=== PATIENT | female | born 1995 | race Caucasian/White ===

== ENCOUNTER 2024-04-20 20:37 | Emergency (ER) | payer SELFPAY ==
--- NOTE | ~2024-04-20 | CT_ITS ---
EXAMINATION: CT lumbar spine wo con DATE: 04/20/2024 22:02 INDICATION: Left-sided sciatica TECHNIQUE: Computed tomography (CT) of the lumbar spine was performed without intravenous contrast. A utomated exposure control and iterative reconstruction technique were employed. The dose-length produ ct was 733.51 mGy-cm. COMPARISON: None FINDINGS: 9 degrees thoracolumbar levocurvature. Vertebral body heights are normal. Sclerotic likely bone islan d with spiculated margins in the L1 vertebral body. Mild disc height loss at L4-L5 and mild right-jacqueline ed disc height loss at L1-L2 and L2-L3. Small Schmorl's node along the superior endplate of L5. Pessa ry within the vaginal vault. Paravertebral soft tissues are unremarkable. The following disc levels a re specifically discussed: T11-T12: The disc does not extend beyond the endplate margin. There is mild bilateral facet joint ost eoarthritis. There is no neural foraminal stenosis. There is no central canal stenosis. T12-L1: The disc does not extend beyond the endplate margin. There is mild right and minimal left fac et joint osteoarthritis. There is no neural foraminal stenosis. There is no central canal stenosis. L1-L2: Disc is mildly bulging. There is mild right and minimal left facet joint osteoarthritis. There is no neural foraminal stenosis. There is no central canal stenosis. L2-L3: Disc is mildly bulging. There is minimal bilateral facet joint osteoarthritis. There is no surya ral foraminal stenosis. There is no central canal stenosis. L3-L4: Disc is bulging. There is minimal bilateral facet joint osteoarthritis. There is no neural for aminal stenosis. There is mild central canal stenosis. L4-L5: Disc is bulging. There is mild left and minimal right facet joint osteoarthritis. There is min imal bilateral neural foraminal stenosis. There is mild central canal stenosis. L5-S1: Disc is bulging. There is mild bilateral facet joint osteoarthritis. There is mild left and mi nimal right neural foraminal stenosis. There is mild central canal stenosis. IMPRESSION: 1. Mild lumbar levocurvature with mild spondylosis. No acute osseous abnormality. Reviewed, dictated and finalized at location A. STOCK RANCHER IMPRESSION: 1. Mild lumbar levocurvature with mild spondylosis. No acute osseous abnormalit y.
[2024-04-20 20:38] VITALS: BP 126/77; PULSE 86; RESP 16; TEMP 36.8; O2SAT 100
[2024-04-20 21:31] LABS: BEDSIDEPREGUCG Negative (Negative)
--- NOTE | 2024-04-20 21:31 | ED.BACK ---
HPI - Back Pain/Injury General Chief Complaint: Back Pain/Injury Stated Complaint: back pain Time Seen by Provider: 04/20/24 21:13 Source: patient Mode of arrival: ambulatory Limitations: no limitations History of Present Illness HPI Narrative: Patient presents with low back pain particularly her right side and extending into the buttock and back of the thigh, terminating at the knee. She states that she had 3 spinal taps with the of her children and has had intermittent back pain issues since with a history of sciatica. 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 She states she has no pain while sitting right now. Previously episodes have lasted 2 weeks but she is hoping to get resolution released improvement sooner than this given that she really needs to keep her job right now. She will occasionally experience pain in her left leg. Pain is rated 10/10 in severity. She has been taking 8 hour extended-release Tylenol 650 mg x 6 total in the past day as well as ibuprofen 200 mg times a total of 8 today. No trauma. No paresthesias or saddle anesthesia currently although she states that earlier she had paresthesias in left toes, digits 3, 4, and 5 but these resolved.. No incontinence of bowel or bladder. Denies IV drug use, cancer, fever, abdominal pain chronic steroid use, HIV, immunosuppression, or tearing sensation. She has been having some dysuria and urinary frequency. No syncope but she states she nearly passed out due to the pain while at work earlier. 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 HEAD: Normocephalic, atraumatic. EYES: Non injected, non icteric ENT: Nares clear, no rhinorrhea or epistaxis. NECK: Supple. CHEST: Speaking in full sentences. No respiratory distress. HEART: Regular rate and rhythm. . ABDOMEN: Soft, nondistended. EXTREMITIES: Normal range of motion. No lower extremity edema. Patient experiences some pain with extension of the lumbar spine and with left hip flexion but she is able to do so without limitations in range of motion. BACK: Straight leg positive on the left, normal on right. Demonstrates flexion and extension as well as rotational a spse-nh-ydly motion at the lumbar spine. No midline TTP. No appreciable spasm. SKIN: Warm, dry, no rash. NEURO: No focal deficits. Alert and oriented x3. 5/5 strength with bilateral ankle dorsiflexion and plantar flexion, knee flexion extension, hip flexion/abduction/adduction. Sensation intact to touch in bilateral lower extremities in the thighs and calves. PSYCH: Normal mood and affect. Course Vital Signs Vital signs: Vital Signs Temperature 98.3 F 04/20/24 20:38 Pulse Rate 86 04/20/24 20:38 Respiratory Rate 16 04/20/24 20:38 Blood Pressure 126/77 04/20/24 20:38 Pulse Oximetry 100 04/20/24 20:38 Oxygen Delivery Room Air 04/20/24 20:38 Temperature 98.3 F 04/20/24 20:38 Pulse Rate 86 04/20/24 20:38 Respiratory Rate 16 04/20/24 20:38 Blood Pressure 126/77 04/20/24 20:38 Pulse Oximetry 100 04/20/24 20:38 Oxygen Delivery Room Air 04/20/24 20:38 MDM - Back Pain/Injury MDM Narrative Medical decision making narrative: Patient presents with right lower back pain radiating into buttock/back of thigh on the right and terminating at knee. In the emergency department they are afebrile with vital signs within normal limits. Back has no deformities, or signs of trauma. No tenderness is noted on palpation of the spinous processes which are midline. Lumbar paraspinal muscles are not tender and are without spasm. Patient demonstrates flexion, extension, and bweh-tk-rnzy rotation of the lumbar spine. Sensation to the lower extremities is normal bilaterally. Dorsi/plantar flexion is normal bilaterally. They do not have any other red flags for fracture, malignancy, infection (e.g. spinal epidural abscess), or aortic/vascular: Age, no trauma, not on chronic steroids, no symptoms of cancer, no fever, IV drug use, HIV, immunosuppression, abdominal pain, tearing pain, syncope. Some urinary symptoms; will obtain urinalysis. This is negative. Patient given [place]. However, given straight leg test positive on the left, will proceed with imaging. Urinalysis unremarkable. PVR essentially nothing per RN. Imaging negative for acute process as below. Patient given ketorolac and lidocaine patch. We had discussed multimodal pain strategy and the importance of balancing rest with performing simple exercises and back strengthening. Medications are prescribed. Advised follow up; does not reside here but provided referral if she does end up staying in the area. Provided strict ED return precautions. Lab Data Attestation: I reviewed the patient's lab results. Labs: Lab Results 04/20/24 04/20/24 Range/Units 21:27 21:29 Urine Color Yellow (Yellow) Urine Appearance Clear (Clear) Urine pH 6.0 (5.0-9.0) Ur Specific [place] 1.022 (1.001-1.035) Urine Protein Negative (Negative) mg/dL Urine Glucose (UA) Negative (Negative) mg/dL Urine Ketones Negative (Negative) mg/dL Ur Blood (Man) Negative (Negative) Urine Nitrate Negative (Negative) Urine Bilirubin Negative (Negative) Urine Urobilinogen 0.2 (<2.0) mg/dL Leukocyte Esterase Rfl Negative (Negative) ROSANNE/UL POC Urine HCG, Qual Negative (Negative) Imaging Data Radiologist's impression: CT L spine Stat Rad: No evidence of acute lumbar spine pathology. If there is continued clinical concern for radiculopathy, and MRI may be of benefit for further evaluation. Incidental findings: Mild levoscoliosis. No comparisons. Discharge Plan Discharge Clinical Impression: Sciatica, Levoscoliosis of lumbar spine Patient Disposition: Home, Self-Care Condition: Stable Instructions: Antibiotic Form, Sciatica (ED), Acute Low Back Pain (ED), Lower Back Exercises (ED) Additional Instructions: As we discussed, the goal is multimodal pain management to allow you to balance some rest with making the pain more tolerable so that you can perform low back stretches and exercises to strengthen your core. Acetaminophen/Tylenol (maximum 4000 mg per day) is safe to take with NSAIDs (ibuprofen/Motrin) for pain relief. There also topical approaches as well as muscle relaxer. Follow-up with your primary care physician. If you do stay in the area and need 1, the name of a doctor is provided below. Return to the ER if you have increased pain in your back, you develop lower extremity weakness/numbness/paralysis, you have numbness or tingling in your private parts, or you are unable to control your ability to urinate/stool. Patient Language: Wolof Prescriptions: New lidocaine 4 % adhesive patch,medicated 1 patch topical DAILY PRN (Reason: pain) Qty: 5 0RF ibuprofen 600 mg tablet 600 mg PO TID PRN (Reason: pain) Qty: 30 0RF acetaminophen 500 mg capsule 1,000 mg PO Q6H PRN (Reason: pain) Qty: 30 0RF methocarbamol 750 mg tablet 1,500 mg PO HS Qty: 14 0RF Follow-up/Referrals: Brittney Lopez DO [Physician] - (family practice) PHYSICIAN NOT ON STAFF,NONSTAFF [Primary Care Provider] - Stand Alone Forms: Work/School Release IP Time of Disposition: 00:27
[2024-04-20 21:34] LABS: Add Urine Microscopic? NO; Appearance Urine Clear (Clear); Bilirubin Urine Negative (Negative); Blood Urine Negative (Negative); Color Urine Yellow (Yellow); Glucose Urine UA Negative (Negative); Ketones Urine Negative (Negative); Leukocyte Esterase Ur Negative LEU/UL (Negative); Nitrate Urine Negative (Negative); Protein Urine Negative (Negative); Specific Grav Ur 1.022 (1.001-1.035); Urobilinogen Urine 0.2 mg/dL (<2.0)
[2024-04-20] MEDS: HYDROcodone/acetaminophen (*CRX) 5-325 MG TABLET 1 TAB PO (21:47)
--- OUTSIDE RECORDS SUMMARY | 2024-04-20 22:14 | XMS_ITS | Encounter Summary ---
Author Organization [facility] Address [address] [place], [address] [place] [address] Care Team Providers Care Tool Design Checker Name Role Phone Unavailable Primary Care Provider Unavailabl e Encounter Details Date Type Department Care Team (Late st Contact Info) Description 10/03/2022 Lab Requisition [facility] [address] [facility] [place] [id number] Ordering, Generic Physician Encounter for general adult medical examination without abnormal findings Social History Tobacco Use Types Packs/Day Years Used Date Smoking Tobacco: Never Assessed Comments Unknown Sex and Gender Information Value Date Recorded Sex Assigned at Not on file 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 Urine URINE SPECIMEN / Unknown 10/02/2022 6:50 PM CDT 10/03/2022 1:[address] [facility] - 10/04/2022 12:13 PM CDT Urogenital marilee present. No further workup. Generic Physician Ordering MICROBIOLOGY - GENERA L ORDERABLES Final Result [facility] [address] [place] [address], [facility] [phone] documented in this encounter Visit Diagnoses Diagnosis Encounter for general adult medical examination without abnormal findings documented in this encounter
--- OUTSIDE RECORDS SUMMARY | 2024-04-20 22:14 | XMS_ITS | Encounter Summary ---
Author Organization [facility] Address [address] [facility] [place], [address] [place] [address] Care Team Providers Care Aircraft Loadmaster Superintendent Name Role Phone Unavailable Primary Care Provider Unavailabl e Encounter Details Date Type Department Care Team (Late st Contact Info) Description 12/01/2021 Lab Requisition [facility] [address] [facility] [place], [id number] Ordering, Generic Physician Encounter for general adult medical examination without abnormal findings Social History Tobacco Use Types Packs/Day Years Used Date Smoking Tobacco: Never Assessed Comments Unknown Sex and Gender Information Value Date Recorded Sex Assigned at Not on file 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 Gender Identity Not on file Sexual Orientation Not on file documented as of this encounter Plan of Treatment Not on file documented as of this encounter Procedures Procedure Name Priority Date/Time Associated Diagnosis Comments CULTURE MISCELLANEOUS WITH STAIN (PREVIOUSLY WOUND CULTURE) Today 11/30/2021 4:46 PM CDT Encounter for general adult medical examination without abnormal findings documented in this encounter Results * (ABNORMAL) Wound culture (11/30/2021 4:46 PM CDT) Miscellaneous Culture STAPHYLOCOCCUS AUREUS(A) SUSCEPTI BILITY (COLIN) PANEL 12/03/2021 10:03 AM T [facility] Comment:Methicillin resistan t Staph aureus (MRSA) Miscellaneous Culture STAPHYLOCOCCUS, COAGULASE NEGATIVE(A) SUSCEPTI BILITY (COLIN) PANEL 12/03/2021 10:03 AM T [facility] Comment:No further testing p erformed. Notify Lab if further testing required. Gram Stain Few Gram positive cocci 12/03/2021 10:03 AM CDT [facility] Wound SWAB FROM LOWER LEG / Unknown 11/30/2021 4:46 PM CDT 12/01/2021 1:12 PM CDT Narrative [facility] - 12/03/2021 10:03 AM CDT LEFT LOWER LEG Organism Antibiotic Method Susceptibility Staphylococcus aureus Clindamycin SUSCEPTIBI LITY (COLIN) PANEL >=4.00: Resistant Staphylococcus aureus Doxycycline SUSCEPTIBI LITY (COLIN) PANEL <=0.50: Sensitive Staphylococcus aureus Oxacillin SUSCEPTIBI LITY (COLIN) PANEL >=4.00: Resistant Staphylococcus aureus Rifampin SUSCEPTIBI LITY (COLIN) PANEL <=0.50: Sensitive Staphylococcus aureus Trimethoprim+Sulfa m ethoxazole SUSCEPTIBILITY (COLIN) PANEL <=10.000: Sensitive Staphylococcus aureus Vancomycin SUSCEPTIBI LITY (COLIN) PANEL 1.000: Sensitive us Generic Physician Ordering MICROBIOLOGY - GENERA L ORDERABLES Final Result Performing Organization Address City/State/[facility] Co de Phone Number [facility] [address] [place] [address], [facility] [phone] documented in this encounter Visit Diagnoses Diagnosis Encounter for general adult medical examination without abnormal findings documented in this encounter
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
--- OUTSIDE RECORDS SUMMARY | 2024-04-20 22:14 | XMS_ITS | Encounter Summary ---
Author Organization [facility] Address [address] [facility] [place], [address] [place] [address] Care Team Providers Care Communication Clerk Name Role Phone Unavailable Primary Care Provider Unavailabl e Encounter Details Date Type Department Care Team (Late st Contact Info) Description 12/20/2021 Lab Requisition [facility] [address] [facility] [place], [phone] Ordering, Generic Physician Encounter for general adult medical examination without abnormal findings Social History Tobacco Use Types Packs/Day Years Used Date Smoking Tobacco: Never Assessed Comments Unknown Sex and Gender Information Value Date Recorded Sex Assigned at Not on file Legal Sex Female 8:34 PM 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 Gender Identity Not on file Sexual Orientation Not on file documented as of this encounter Plan of Treatment Not on file documented as of this encounter Procedures Procedure Name Priority Date/Time Associated Diagnosis Comments CULTURE URINE Today 12/19/2021 5:50 PM CDT Encounter for general adult medical examination without abnormal findings documented in this encounter Results * (ABNORMAL) Urine culture (clean catch) (12/19/2021 5:50 PM CDT) Urine Culture >=100,000 CFU/ml 12/22/2021 8:11 AM CDT [facility] Urine Culture ESCHERICHIA COLI(A) SUSCEPTIB ILITY (COLIN) PANEL 12/22/2021 8:11 AM T [facility] Urine URINE SPECIMEN OBTAINED BY CLEAN CATCH PROCEDURE / Unknown 12/19/2021 5:50 PM CDT 12/20/2021 12:57 PM CDT Narrative [facility] - 12/22/2021 8:11 AM CDT Urogenital marilee present. No further workup. Organism Antibiotic Method Susceptibility Escherichia coli Amoxicillin/Clavulanate SUSCEPT IBILITY (COLIN) PANEL 16.00: Intermediate Escherichia coli Ampicillin SUSCEPTIBILITY (COLIN) PANEL >=32.000: Resistant Escherichia coli Cefazolin SUSCEPTIBILITY (COLIN) PANEL 16.00: Sensitive Escherichia coli Cefepime SUSCEPTIBILITY (COLIN) PANEL <=1.000: Sensitive Escherichia coli Ceftazidime SUSCEPTIBILITY (COLIN) PANEL <=1.00: Sensitive Escherichia coli Ceftriaxone SUSCEPTIBILITY (COLIN) PANEL <=1.000: Sensitive Escherichia coli Gentamicin SUSCEPTIBILITY (COLIN) PANEL <=1.00: Sensitive Escherichia coli Levofloxacin SUSCEPTIBILITY (COLIN) PANEL <=0.120: Sensitive Escherichia coli Nitrofurantoin SUSCEPTIBILITY (COLIN) PANEL <=16.00: Sensitive Escherichia coli Piperacillin/Tazobactam SUSCEPT IBILITY (COLIN) PANEL <=4.000: Sensitive Escherichia coli Tobramycin SUSCEPTIBILITY (COLIN) PANEL <=1.00: Sensitive Escherichia coli Trimethoprim+Sulfame tho xazole SUSCEPTIBILITY (COLIN) PANEL >=320.000: Resistant Generic Physician Ordering MICROBIOLOGY - GENERA L ORDERABLES Final Result [facility] [address] [place] [address], [facility] [phone] documented in this encounter Visit Diagnoses Diagnosis Encounter for general adult medical examination without abnormal findings documented in this encounter
--- OUTSIDE RECORDS SUMMARY | 2024-04-20 22:14 | XMS_ITS | Encounter Summary ---
Author Organization [facility] Address [address] [facility] [place], [address] [place] [address] Care Team Providers Care Registered Radiologic Technologist Name Role Phone Unavailable Primary Care Provider Unavailabl e Encounter Details Date Type Department Care Team (Late st Contact Info) Description 07/23/2019 Lab Requisition [facility] [address] [facility] [place], [phone] Ordering, Generic Physician Encounter for general adult medical examination without abnormal findings Social History Tobacco Use Types Packs/Day Years Used Date Smoking Tobacco: Never Assessed Comments Unknown Sex and Gender Information Value Date Recorded Sex Assigned at Not on file Legal Sex Female 8:34 PM PARTS IDENTIFICATION TECHNICIAN Gender Identity Not on file Sexual Orientation Not on file documented as of this encounter Plan of Treatment Not on file documented as of this encounter Procedures Procedure Name Priority Date/Time Associated Diagnosis Comments CULTURE MISCELLANEOUS WITH STAIN (PREVIOUSLY WOUND CULTURE) Today 07/22/2019 8:42 PM CDT Encounter for general adult medical examination without abnormal findings documented in this encounter Results * (ABNORMAL) Wound culture (07/22/2019 8:42 PM CDT) Miscellaneous Culture STAPHYLOCOCCUS AUREUS(A) SUSCEPTI BILITY (COLIN) PANEL 07/25/2019 10:27 AM CDT [facility] Comment:Methicillin resistan t Staph aureus (MRSA) Gram Stain Few Red blood cells 07/25/2019 10:27 AM T [facility] Gram Stain Few Gram positive cocci suggestive of Staphylococcus 07/25/2019 10:27 AM T [facility] Wound SPECIMEN FROM ABSCESS / Unknown 07/22/2019 8:42 PM CDT 07/23/2019 1:29 PM CDT Narrative [facility] - 07/25/2019 10:27 AM CDT RT. Index Finger Organism Antibiotic Method Susceptibility Staphylococcus aureus Clindamycin SUSCEPTIBI LITY (COLIN) PANEL >=4.00: Resistant Staphylococcus aureus Doxycycline SUSCEPTIBI LITY (COLIN) PANEL <=0.50: Sensitive Staphylococcus aureus Gentamicin SUSCEPTIBI LITY (COLIN) PANEL <=0.50: Sensitive Staphylococcus aureus Oxacillin SUSCEPTIBI LITY (COLIN) PANEL >=4.00: Resistant Staphylococcus aureus Rifampin SUSCEPTIBI LITY (COLIN) PANEL <=0.50: Sensitive Staphylococcus aureus Trimethoprim+Sulfa m ethoxazole SUSCEPTIBILITY (COLIN) PANEL <=10.000: Sensitive Staphylococcus aureus Vancomycin SUSCEPTIBI LITY (COLIN) PANEL 1.000: Sensitive us Generic Physician Ordering MICROBIOLOGY - GENERA L ORDERABLES Final Result Performing Organization Address City/State/[facility] Co de Phone Number [facility] [address] [id number], [facility] [phone] documented in this encounter Visit Diagnoses Diagnosis Encounter for general adult medical examination without abnormal findings documented in this encounter
--- OUTSIDE RECORDS SUMMARY | 2024-04-20 22:14 | XMS_ITS | Clinical Summary ---
Author Organization [facility] Address [address] [place], [address] [place] [address] Care Team Providers Care Environmental Specialist Name Role Phone Unavailable Primary Care Provider Unavailabl e Allergies No known active allergies Medications * This document contains information received from the source organization and may not represent a complete record from that organization. lithium 300 mg tablet Take one-half tablet (150 mg total) by mouth every 12 (twelve) hours 30 tablet 10/14/2022 Active Active Problems Problem Noted Date Diagnosed Date Paranoia (HCC ) 10/12/2022 Social History Tobacco Use Types Packs/Day Years Used Date Smoking Tobacco: Never Smokeless Tobacco: Never Tobacco Cessation:Counseling Given: Not Answered Alcohol Use Standard Drinks/Week Comments Not Currently 0 (1 standard drink = 0.6 oz pur e alcohol) Intimate Partner Safety Answer Date Rec orded Intimate Partner Safety Not At Risk 05/13/19 24 Intimate Partner Safety Not At Risk 05/13/19 24 Intimate Partner Safety Not At Risk 05/13/19 24 Intimate Partner Safety Not At Risk 05/13/19 24 Intimate Partner Safety Not At Risk 05/13/19 24 Comments Unknown Sex and Gender Information Value Date Recorded Sex Assigned at Not on file Legal Sex Female 8:34 PM 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 Gender Identity Not on file Sexual Orientation Not on file Last Filed Vital Signs Vital Sign Reading Time Taken Comments Blood Pressure 123/58 10/14/2022 7:00 AM CDT Pulse 85 10/14/2022 7:00 AM CDT Temperature 36.8 C (98.3 F) 10/14/2022 7:00 AM CDT Respiratory Rate 18 10/14/2022 7:00 AM CDT Oxygen Saturation 98% 10/14/2022 7:00 AM CDT Inhaled Oxygen Concentration - - Weight 75.7 kg (166 lb 14.4 oz) 10/14/2022 6:00 AM CDT Height 167.6 cm (5' 6 ) 10/11/2022 9:10 PM CDT Body Mass Index 26.94 10/11/2022 9:10 PM CDT Plan of Treatment Not on file [facility]
--- OUTSIDE RECORDS SUMMARY | 2024-04-20 22:14 | XMS_ITS | Clinical Summary ---
Author Organization [facility] Address [address] [place] [address] Care Team Providers Care Collector Name Role Phone Unavailable Primary Care Provider Unavailabl e Allergies No known active allergies Medications * This document contains information received from the source organization and may not represent a complete record from that organization. 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 Family History Medical History Relation Comments No Known Problems Brother No Known Problems Father No Known Problems Maternal Aunt No Known Problems Maternal Grandfather No Known Problems Maternal Grandmother No Known Problems Maternal Uncle No Known Problems Mother No Known Problems Paternal Aunt No Known Problems Paternal Grandfather No Known Problems Paternal Grandmother No Known Problems Paternal Uncle No Known Problems Sister Relation Status Comments Brother Father Maternal Aunt Maternal Grandfather Maternal Grandmother Maternal Uncle Mother Paternal Aunt Paternal Grandfather Paternal Grandmother Paternal Uncle Sister Social History Tobacco Use Types Packs/Day Years Used Date Smoking Tobacco: Former Cigarettes Smokeless Tobacco: Never Alcohol Use Standard Drinks/Week Comments Not Currently 0 (1 standard drink = 0.6 oz pur e alcohol) Overall Financial Resource Strain (CARDIA) Answe r Date Recorded How hard is it for you to pa y for the very basics like food, housing, medical care, and heating? Not hard at all 08/17/2022 Hunger Vital Sign Answer Date Recorded Within the past 12 months, y ou worried that your food would run out before you got the money to buy more. Often true 08/18/19 23 Within the past 12 months, t he food you bought just didn't last and you didn't have money to get more. Often true 08/17/2022 PRAPARE - Transportation Answer Date Re corded In the past 12 months, has l ack of transportation kept you from medical appointments or from getting medications? Yes 09/2022 In the past 12 months, has l ack of transportation kept you from meetings, work, or from getting things needed for daily living? Yes 08/17/2022 Housing Stability Vital Sign Answer Paulo e Recorded In the last 12 months, was t here a time when you were not able to pay the mortgage or rent on time? No 08/17/2022 In the last 12 months, how many places have you lived? 1 08/17/2022 In the last 12 months, was t here a time when you did not have a steady place to sleep or slept in a prison (including now)? No 08/17/2022 Education Answer Date Recorded What is the highest level of school you have completed or the highest degree you have received? 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
--- OUTSIDE RECORDS SUMMARY | 2024-04-20 22:14 | XMS_ITS | Encounter Summary ---
Author Organization [facility] Address [address] [place] [place], [address] [place] [address] Care Team Providers Care Short Piece Handler Name Role Phone Unavailable Primary Care Provider Unavailabl e Encounter Details Date Type Department Care Team (Late st Contact Info) Description 07/21/2018 Lab Requisition [facility] [address] [place] [id number] Ordering, Generic Physician Encounter for general adult medical examination without abnormal findings Social History Tobacco Use Types Packs/Day Years Used Date Smoking Tobacco: Never Assessed Comments Unknown Sex and Gender Information Value Date Recorded Sex Assigned at Not on file 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 Gender Identity Not on file Sexual Orientation Not on file documented as of this encounter Plan of Treatment Not on file documented as of this encounter Procedures Procedure Name Priority Date/Time Associated Diagnosis Comments CULTURE URINE Today 07/21/2018 8:32 AM CDT Encounter for general adult medical examination without abnormal findings documented in this encounter Results * Urine culture (clean catch) (07/21/2018 8:32 AM CDT) Urine Culture <10,000 CFU/ML - No Significant Growth 07/23/2018 7:56 AM CDT [facility] Urine URINE SPECIMEN OBTAINED BY CLEAN CATCH PROCEDURE / Unknown 07/21/2018 8:32 AM CDT 07/21/2018 6:03 PM CDT us Generic Physician Ordering MICROBIOLOGY - GENERA L ORDERABLES Final Result [facility] [address] [facility] [place], [place] [address] [phone] documented in this encounter Visit Diagnoses Diagnosis Encounter for general adult medical examination without abnormal findings documented in this encounter
--- OUTSIDE RECORDS SUMMARY | 2024-04-20 22:14 | XMS_ITS | Encounter Summary ---
Author Organization [facility] Address 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 Name Role Phone Unavailable Primary Care Provider Unavailabl e Encounter Details Date Type Department Care Team (Late st Contact Info) Description 09/07/2018 Lab Requisition [facility] [address] [facility] [place], [id number] Ordering, Generic Physician Encounter for general adult medical examination without abnormal findings Social History Tobacco Use Types Packs/Day Years Used Date Smoking Tobacco: Never Assessed Comments Unknown Sex and Gender Information Value Date Recorded Sex Assigned at Not on file 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 Gender Identity Not on file Sexual Orientation Not on file documented as of this encounter Plan of Treatment Not on file documented as of this encounter Procedures Procedure Name Priority Date/Time Associated Diagnosis Comments CULTURE MISCELLANEOUS WITH STAIN (PREVIOUSLY WOUND CULTURE) Today 09/06/2018 12:01 AM CDT Encounter for general adult medical examination without abnormal findings documented in this encounter Results * (ABNORMAL) Wound culture (09/06/2018 12:01 AM CDT) Miscellaneous Culture STAPHYLOCOCCUS AUREUS(A) SUSCEPTI BILITY (COLIN) PANEL 09/09/2018 8:27 AM CDT [facility] Comment:Methicillin resistan t Staph aureus (MRSA) Gram Stain Many Gram positive cocci 09/09/2018 8:27 AM T [facility] Gram Stain Many White blood cells 09/09/2018 8:27 AM T [facility] Wound SWAB FROM BUTTOCK / Unknown 09/06/2018 12:01 AM CDT 09/07/2018 12:53 PM CDT Narrative Organism Antibiotic Method Susceptibility Staphylococcus aureus Clindamycin [...] Staphylococcus aureus Vancomycin SUSCEPTIBI LITY (COLIN) PANEL <=0.500: Sensitive us Generic Physician Ordering MICROBIOLOGY - GENERA L ORDERABLES Final Result [facility] [address] [place] [address], [facility] [phone] documented in this encounter Visit Diagnoses Diagnosis Encounter for general adult medical examination without abnormal findings documented in this encounter
--- OUTSIDE RECORDS SUMMARY | 2024-04-20 22:14 | XMS_ITS | Continuity of Care Document ---
Author Organization [facility] Address [address] [place] [address] Phone Care Team Providers Care Jewel Waxer Name Role Phone MD Nieves, Selena Unavailable Unavailable Allergies, Adverse Reactions, Alerts Substance Reaction Status Criticality No Known Allergies Active No Inform ation Medications Medication Instructions Dosage Effective Dates (start - stop) Status Comments levothyroxine 25 mcg tablet take 1 tablet by oral route every day 25 MCG - Active Procedures Procedure Date TTE W/DOPPLER, COMPLETE OFFICE/OUTPATIENT VISIT, NEW ELECTROCARDIOGRAM, COMPLETE Advance Directives Directive Yes / No Effective Date File Name No Information Encounters Encounter Description Practice Location Reason(s) For Visit Diagnoses Date Provider Providers Copied on Encounter [facility], [address], [place], [address], [place] tel:[phone] [facility] [place] 2 No Information 4 MD Nieves [address], [place], [place], [id number] . tel:[phone] Referring Provider: MD Garland Rodríguez, [facility] [address], [place], [address] . tel:[phone] OFFICE/OUTPA TIENT VISIT, NEW [facility], [address], [place], [address], [place] tel:[phone] [facility] [place]ian [place] Palpitations (chief complaint) PalpitationsTobac co useTobacco abuse counselingHypothy roidismNicotine dependence, cigarettes, uncomplicated 4 MD Nieves [address], [place], [id number] . tel: [phone] Referring Provider: Brittney Brock NP, [address], [place], [address]. tel:[phone] Family History Family Member Type Diagnosis Age At Onset No Information Payers Payer name Insurance type Covered libertarian ID Keny yoder(s) [facility] [id number] Social History Type Description Quantity Date Captured Comments Alcohol Use Details Unknown Caffeine Use Details Unknown Tobacco Use Status No Information Smoking Status No Information Sex Female Chief Complaint And Reason For Visit No Information Reason For Referral Reason For Referral No Information Plan Of Treatment Date Type Action Status Goal Tobacco cessation counseling completed Appointment Esther Aceves BOOKED Patient Education Palpitations: After You r Visit completed History Of Present Illness Encounter Date Complaint History Of Prese nt Illness Palpitations Functional Status Date Functional Assessmen t No Information Instructions Date Instruction Additional Infor mation No Information Assessments Type Assessment Date No Information Patient Care Teams Name Effective Dates (start - stop) Status Members No Information
[2024-04-21] MEDS: LIDOCAINE 5% PATCH 1 PATCH TRANSDERM (00:31)
[2024-04-21] MEDS: KETOROLAC 30 MG/ML VIAL (*BKC) 15 MG IM (00:31)
== END 2024-04-21 00:38 | disposition home or self-care (01) ==
PROVIDERS: Emergency Provider Student in an Organized Health Care Education/Training Program
DX: M54.42 Lumbago with sciatica, left side (principal); M41.9 Scoliosis, unspecified
CPT/HCPCS: 72131; 81003; 81025; 96372; 99284; A9270; J1885